=== PATIENT | male | born 1955 | race Caucasian/White ===

== ENCOUNTER 2019-03-06 06:00 | Outpatient (RCR) | payer MEDICARE, OTHER, SELFPAY | END 2019-04-05 00:01 | LOC: SPT 06:00 | PROVIDERS: Family Provider Family Medicine; Visit Provider Physician Assistant | DX: Z47.1 Aftercare following joint replacement surgery (principal); Z96.611 Presence of right artificial shoulder joint | CPT/HCPCS: 97110 ×7 ==

== ENCOUNTER 2019-04-06 06:00 | Outpatient (RCR) | payer MEDICARE, OTHER, SELFPAY | END 2019-05-06 23:59 | disposition home or self-care (01) | LOC: SPT 06:00 | PROVIDERS: Family Provider Family Medicine; PCP Family Medicine; Referring Provider Physician Assistant; Visit Provider Physician Assistant | DX: Z47.1 Aftercare following joint replacement surgery (principal); M25.511 Pain in right shoulder; M25.611 Stiffness of right shoulder, not elsewhere classified; M62.81 Muscle weakness (generalized) | CPT/HCPCS: 97110 ==

== ENCOUNTER 2019-04-08 18:07 | Emergency (ER) | payer MEDICARE, OTHER, SELFPAY ==
[2019-04-08 18:08] VITALS: BP 132/90; PULSE 63; RESP 15; TEMP 36.8; O2SAT 99; BMI 37.7
[2019-04-08 18:27] VITALS: BP 132/90; PULSE 68; RESP 20; O2SAT 99
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
--- NOTE | 2019-04-08 19:34 | PC.NURSE ---
Pt in radiology.
[2019-04-08 20:02] VITALS: O2SAT 98
[2019-04-08 20:08] VITALS: RESP 18; O2SAT 99
[2019-04-08] MEDS: morphine 4 mg/mL SDV 1 mL IV (20:08)
[2019-04-08] MEDS: ondansetron 2 mg/ML SDV 2 mL 4 MG IVP (20:08)
[2019-04-08 20:34] VITALS: BP 145/93; PULSE 84; RESP 16; TEMP 37; O2SAT 96
== END 2019-04-08 20:40 | disposition home or self-care (01) ==
PROVIDERS: Emergency Provider Emergency Medicine; Family Provider Family Medicine; PCP Family Medicine
DX: S13.4XXA Sprain of ligaments of cervical spine, initial encounter (principal); S40.012A Contusion of left shoulder, initial encounter; S60.00XA Contusion of unspecified finger without damage to nail, initial encounter; S86.112A Strain of other muscle(s) and tendon(s) of posterior muscle group at lower leg level, left leg, initial encounter; V89.2XXA Person injured in unspecified motor-vehicle accident, traffic, initial encounter; F17.210 Nicotine dependence, cigarettes, uncomplicated; E13.9 Other specified diabetes mellitus without complications
CPT/HCPCS: 70450; 72125; 73030; 73120; 73502; 73590; 96374; 99281; J2270; J2405

== ENCOUNTER 2019-04-14 14:44 | Outpatient (CLI) | payer MEDICARE, OTHER, SELFPAY ==
--- NOTE | 2019-04-14 14:53 | XR_ITS ---
WS: [id number] RIGHT SHOULDER: 3 VIEW(S) TECHNIQUE: Internal and external rotation with Y view. HISTORY: SHOULDER PAIN RIGHT COMPARISON: 04/08/2019 Prior reverse arthroplasty RIGHT shoulder. Orientation of the humeral head and humeral diaphysis pros thesis similar to prior examinations. No lucency around the hardware. Mild AC joint arthritis. 1. Mild AC joint arthritis. 2. Reverse shoulder prosthesis. The alignment does appear appropriate. No subluxation or displacemen t. XR/XR shoulder RT min 2V* [id number] IMPRESSION:
== END 2019-04-14 14:45 | disposition home or self-care (01) ==
LOC: WPI 14:52
PROVIDERS: Family Provider Family Medicine; PCP Family Medicine; Referring Provider Family Medicine; Visit Provider Family Medicine
DX: M13.811 Other specified arthritis, right shoulder (principal); M25.511 Pain in right shoulder; Z96.611 Presence of right artificial shoulder joint
CPT/HCPCS: 73030

== ENCOUNTER → 2019-05-03 11:50 | Outpatient (BNVA) | payer MEDICARE, OTHER, SELFPAY | PROVIDERS: Family Provider Family Medicine; PCP Family Medicine; Visit Provider Urology | DX: C67.9 Malignant neoplasm of bladder, unspecified (principal); R33.8 Other retention of urine | CPT/HCPCS: 81001 ==

== ENCOUNTER → 2019-09-05 09:29 | Outpatient (BNVA) | payer MEDICARE, OTHER, SELFPAY | PROVIDERS: Family Provider Family Medicine; PCP Family Medicine; Visit Provider Urology | DX: C67.9 Malignant neoplasm of bladder, unspecified (principal) | CPT/HCPCS: 81001 ==

== ENCOUNTER 2019-10-14 10:42 | Outpatient (CLI) | payer MEDICARE, OTHER, SELFPAY ==
--- NOTE | 2019-10-14 10:49 | XR_ITS ---
WS: [id number] THORACIC SPINE TECHNIQUE: 3 views of the thoracic spine CLINICAL INFORMATION: BACK PAIN, THORACIC REGION COMPARISON: None. FINDINGS: Minimal thoracic curve. Hypertrophic changes thoracic spine. Cholecystectomy clips. Surgical clips at the GE junction. Minimal compression of the endplates in the upper thoracic spine likely chronic. No acute appearing compression fractures. XR/XR thoracic spine 3V* [id number] IMPRESSION: No acute thoracic spine findings.
--- NOTE | 2019-10-14 10:49 | XR_ITS ---
WS: [id number] CERVICAL SPINE TECHNIQUE: 3 views of the cervical spine CLINICAL INFORMATION: CERVICAL RADICULOPATHY COMPARISON: None. FINDINGS: Moderate spondylitic changes. No instability on flexion-extension. Normal C1-C2 articulation. Moderate facet arthropathy in mid cervical spine. Slight retrolisthesis C3 on C4. No instability on flexion-extension. Disc space narrowing worse at C3 -4. XR/XR cervical spine min 6V [id number] IMPRESSION: 1. Moderate spondylitic changes. 2. No instability on flexion-extension.
== END 2019-10-14 10:43 | disposition home or self-care (01) ==
LOC: RADWPI 10:46
PROVIDERS: Family Provider Family Medicine; PCP Family Medicine; Visit Provider Family Medicine
DX: M54.12 Radiculopathy, cervical region (principal); M54.6 Pain in thoracic spine
CPT/HCPCS: 72052; 72072

== ENCOUNTER 2019-10-31 09:53 | Outpatient (CLI) | payer MEDICARE, OTHER, SELFPAY ==
--- NOTE | 2019-10-31 10:27 | MM_ITS ---
WS: [id number] BILATERAL DIGITAL DIAGNOSTIC MAMMOGRAM MAMMOGRAPHY WITH CAD CLINICAL INFORMATION: RT BREAST LUMP/MASS HISTORY: COMPARISON: None. TECHNIQUE: Bilateral CC, MLO, and ML views. FINDINGS: Fatty replaced breasts bilaterally. Palpable marker upper outer right breast. No mammographic normali ty. Ultrasound is pending. A few incidental axillary tail lymph nodes. ULTRASOUND BREAST RIGHT TECHNIQUE: Ultrasound right breast focused area of concern. CLINICAL INFORMATION: RT BREAST LUMP/MASS COMPARISON: None. FINDINGS: Ultrasound right breast at the 11 and 12:00 position. No evidence of underlying mass or lesion. Abby l underlying parenchymal tissue. No lesions to target for biopsy. Predominantly anechoic fluid collection just under the clavicle measuring 4.6 x 1.9 cm. This likely r epresents a postoperative seroma related to prior shoulder replacement or fluid in the subacromial bu rsa. This is in close proximity to patient's pain. Recommend clinical correlation. MM/[place] [id number] IMPRESSION: BI-RADS: 2-Benign FOLLOW UP: See Report SEE DESCRIPTION OF SUBCLAVICULAR FLUID COLLECTION ABOVE
== END 2019-10-31 09:54 | disposition home or self-care (01) ==
LOC: RADSHAW 10:00
PROVIDERS: PCP Family Medicine; Visit Provider Family Medicine
DX: N63.11 Unspecified lump in the right breast, upper outer quadrant (principal)
CPT/HCPCS: 76642; 77066

== ENCOUNTER → 2020-03-08 10:39 | Outpatient (BNVA) | payer MEDICARE, OTHER, SELFPAY | PROVIDERS: PCP Family Medicine; Visit Provider Urology | DX: C67.9 Malignant neoplasm of bladder, unspecified (principal); C67.4 Malignant neoplasm of posterior wall of bladder; Z98.890 Other specified postprocedural states | CPT/HCPCS: 81003; 88112 ==

== ENCOUNTER 2020-03-23 06:00 | Outpatient (RCR) | payer MEDICARE, OTHER, SELFPAY | END 2020-04-05 23:59 | disposition home or self-care (01) | LOC: SPT 06:00 | PROVIDERS: PCP Family Medicine; Referring Provider Orthopaedic Surgery; Visit Provider Orthopaedic Surgery | DX: M17.11 Unilateral primary osteoarthritis, right knee (principal) | CPT/HCPCS: 97032; 97110; 97161 ==

== ENCOUNTER 2020-04-06 06:00 | Outpatient (RCR) | payer MEDICARE, OTHER, SELFPAY | END 2020-05-06 23:59 | disposition home or self-care (01) | LOC: SPT 06:00 | PROVIDERS: PCP Family Medicine; Referring Provider Orthopaedic Surgery; Visit Provider Orthopaedic Surgery | DX: M17.11 Unilateral primary osteoarthritis, right knee (principal) | CPT/HCPCS: 97110 ==

== ENCOUNTER 2020-06-29 06:00 | Outpatient (RCR) | payer MEDICARE, OTHER, SELFPAY | END 2020-07-04 23:59 | disposition home or self-care (01) | LOC: SPT 06:00 | PROVIDERS: PCP Family Medicine; Referring Provider Orthopaedic Surgery; Visit Provider Orthopaedic Surgery | DX: M17.12 Unilateral primary osteoarthritis, left knee (principal) | CPT/HCPCS: 97110; 97161 ==

== ENCOUNTER 2020-07-05 06:00 | Outpatient (RCR) | payer MEDICARE, OTHER, SELFPAY | END 2020-08-03 23:59 | disposition home or self-care (01) | LOC: SPT 06:00 | PROVIDERS: PCP Family Medicine; Referring Provider Orthopaedic Surgery; Visit Provider Orthopaedic Surgery | DX: Z47.1 Aftercare following joint replacement surgery (principal); Z96.652 Presence of left artificial knee joint | CPT/HCPCS: 97110; G0283 ==

== ENCOUNTER 2020-08-04 06:00 | Outpatient (RCR) | payer MEDICARE, OTHER, SELFPAY | END 2020-09-03 23:59 | disposition home or self-care (01) | LOC: SPT 06:00 | PROVIDERS: PCP Family Medicine; Referring Provider Orthopaedic Surgery; Visit Provider Orthopaedic Surgery | DX: Z47.1 Aftercare following joint replacement surgery (principal); Z96.652 Presence of left artificial knee joint | CPT/HCPCS: 97110 ==

== ENCOUNTER → 2020-12-11 10:07 | Outpatient (BNVA) | payer MEDICARE, OTHER, SELFPAY | PROVIDERS: PCP Family Medicine; Visit Provider Urology | DX: C67.9 Malignant neoplasm of bladder, unspecified (principal) | CPT/HCPCS: 81003 ==

== ENCOUNTER → 2020-12-28 08:40 | Outpatient (BNVA) | payer MEDICARE, OTHER, SELFPAY | PROVIDERS: PCP Family Medicine; Visit Provider Nurse Practitioner Family | DX: Z20.818 Contact with and (suspected) exposure to other bacterial communicable diseases (principal) | CPT/HCPCS: 87426 ==

== ENCOUNTER → 2021-07-04 10:37 | Outpatient (BNVA) | payer MEDICARE, OTHER, SELFPAY | PROVIDERS: PCP Family Medicine; Visit Provider Urology | DX: C67.9 Malignant neoplasm of bladder, unspecified (principal) | CPT/HCPCS: 81003; 88112 ==

== ENCOUNTER 2021-10-08 11:49 | Emergency (ER) | payer MEDICARE, OTHER, SELFPAY ==
[2021-10-08 12:12] VITALS: BP 149/87; PULSE 84; RESP 18; TEMP 35.8; O2SAT 93; BMI 43.6
--- NOTE | 2021-10-08 12:21 | ED_ITS ---
HPI - Fall General: Chief Complaint: Fall Stated Complaint: Fell, hit head, hip pain, neck pain Time Seen by Provider: 10/08/21 12:21 History of Present Illness: Mr. Cortez is a 65-year-old gentleman who presents to the emergency department due to multiple falls. He reports a histor y of difficulty with equilibrium and falls not infrequently. Approximately 1 week ago he was in the bucket of a front end reproduction machine loader and fell out when it jerked landing on the cab primarily on his right back region. Since that time he has had 2 more falls each time sound more like equilibrium/balance as opposed to any other specific provoking event. Denies chest pain or shortness of breath preceding falls. He reports headache, posterior neck pain, right back pain, anterior rib inferiorly, right hip pain. Intensity symptoms is moderate. Course has persisted. No other specific changes in health, exacerbating, or alleviating factors identified. 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 Social History Smoking and tobacco status: former smoker Alcohol intake: current Alcohol intake frequency: holidays/special occasions only Adopted: No Caregiver/support person: No Lives independently: No Household members: spouse Marital status: Current occupational status: disabled History of recent travel: No Physical Exam Const: COMMON NORMALS: alert GENERAL APPEARANCE: cooperative and well developed NUTRITIONAL APPEARANCE: obese HENMT: COMMON NORMALS: normocephalic and atraumatic HEAD & SCALP: normocephalic and atraumatic OTHER: No lewis signs or raccoon eyes. No hemotympanum. No otorrhea or rhinorrhea. Jaw alignment normal. Dentition baseline. No obvious bony step-offs. No septal hematoma. No evidence of ocular entrapment. Eye: COMMON NORMALS: conjunctivae normal CONJUNCTIVA: Yes conjunctivae normal SCLERA: sclerae normal Neck/C-Spine: COMMON NORMALS: supple GENERAL: Yes trachea midline Chest: OTHER: Right rib pain tender to palpation Resp: COMMON NORMALS: clear to auscultation bilaterally EFFORT & INSPECTION: Yes able to speak in complete sentences AUSCULTATION: clear to auscultation bilaterally Cardio: COMMON NORMALS: regular rate and regular rhythm RATE: regular rate RHYTHM: regular rhythm GI: COMMON NORMALS: Soft to palpation PALPATION: Yes Soft to palpation and Yes Tenderness to palpation present (GI) (Right flank and back) PERCUSSION: normal to percussion Extremity: NARRATIVE EXTREMITY EXAM: Scattered areas of tenderness to palpation GENERAL: Yes normal exam except as noted and No edema Neuro: COMMON NORMALS: moves all extremities SENSORIUM/ORIENTATION: Yes alert and No Orientation impaired Psych: COMMON NORMALS: mental status grossly normal and Normal thought process present THOUGHT PROCESS: Normal thought process present Course Vital Signs: Vital signs: Vital Signs Temperature 96.4 F L 10/08/21 12:12 Pulse Rate 84 10/08/21 12:12 Respiratory Rate 16 10/08/21 13:18 Blood Pressure 149/87 10/08/21 12:12 Pulse Oximetry 93 10/08/21 12:12 MDM - Fall Medical Decision Making 66-year-old gentleman presenting with multiple falls including 1 fall from height with continued pain. Head to toe exam performed. No specific preceding red flag symptoms. CT head negative for acute intracranial process. CT neck negative for traumatic injury. CT chest abdomen pelvis without evidence of acute traumatic injury. Patient improved with treatment and satisfactory for outpatient management. Medical Records I reviewed the patient's medical records. Lab Data I reviewed the patient's lab results. Radiology Impressions Cervical Spine CT 10/08/21 12:40 IMPRESSION: No evidence of acute fracture or dislocation. Mild to moderate spondylitic changes. Chest/Abdomen/Pelvis CT 10/08/21 12:40 IMPRESSION: 1. No acute traumatic findings chest abdomen or pelvis. 2. Both lungs are well aerated. No acute pulmonary infiltrates. 3. No free fluid in the abdomen or pelvis. 4. Small esophageal hiatal hernia. Prior gastric bypass. 5. Cholelithiasis. 6. Visualized hips are normal in appearance. No visualized fractures. 7. Grade 1 anterolisthesis L5 on S1 with chronic spondylolysis. Head CT 10/08/21 12:40 IMPRESSION: 1. No evidence of intracranial hemorrhage or mass effect. 2. Mild small vessel changes. Moderate parenchymal volume loss. 3. Intracranial vascular calcification. 4. No acute intracranial findings. Discharge Plan Discharge Patient Disposition: Home Clinical Impression: Falls, Hip pain, Neck pain Condition: Stable Prescriptions: No Action divalproex [Depakote] 250 mg tablet,delayed release (DR/EC) 250 mg PO BID 0RF lidocaine HCl 2 % jelly 15 ml INTRA-URET ONCE Qty: 15 0RF furosemide 80 mg tablet 80 mg PO QAM 0RF multivitamin Capsule 1 cap PO QAM 0RF cholecalciferol (vitamin D3) 50 mcg (2,000 unit) capsule 50 mcg PO QDAY 0RF ascorbic acid (vitamin C) 500 mg capsule PO 0RF ferrous sulfate [FeroSul] 325 mg (65 mg iron) tablet 325 mg PO QDAY 0RF citalopram [Celexa] 40 mg tablet 20 mg PO QDAY 0RF simvastatin 20 mg tablet 20 mg PO QDAY 0RF lisinopril 40 mg tablet 40 mg PO QDAY 0RF pantoprazole [Protonix] 40 mg tablet,delayed release (DR/EC) 40 mg PO QDAY 0RF lidocaine HCl 2 % jelly 1 applic intra-urethral ONCE Qty: 20 0RF ketoconazole 2 % cream 1 applic topical BID Qty: 30 5RF Rx Instructions: To pink scaly areas on face and ears as needed ketoconazole 2 % shampoo 1 applic topical .2 x weekly Qty: 120 3RF Rx Instructions: Lather into scalp 2 times weekly. Allow to sit on scalp for 5 minutes before rinsing. Discharge Orders: Discharge ED (Routine); Ordered 10/08/21 Ordered By: Kel Roberson Referrals: Reg Hamilton MD [Primary Care Provider] - Discharge Diet: Usual diet Discharge Activity: Increase activity as tolerated Activity Restrictions/Additional Instructions: Thank you for visiting the emergency department. You were seen and evaluated for injuries related to frequent falls. The exact cause of your symptoms is unclear though as no bony abnormality or internal injury was identified on CT scan is most likely related to soft tissue injury. The treatment for this is supportive. Please ensure that you are limiting risk of falls. Please follow-up with your primary care provider. You may continue to use the previously prescribed medication as well as ov [id number] medications however please do not exceed the daily recommended dosage and please keep in mind that many namebrand medications contain the same active ingredients. Please return to the emergency department for worsening symptoms or anything else that you are concerned about and feel needs emergency department evaluation. Coding Level of Care Code ED Business Lawyer for Edgar Barajas Exam Comprehensive
--- NOTE | 2021-10-08 12:40 | CT_ITS ---
WS: [id number] CT CERVICAL TRAUMA TECHNIQUE: Noncontrast CT of the cervical spine with coronal and sagittal reformatted images. CLINICAL INFORMATION: multiple falls, posterior lower neck pain COMPARISON: 2019 DLP: 454.[address] scans at [facility] use at least one of these dose optimization techniques: automated e xposure control; mA and/or kV adjustment per patient size (includes targeted exams where dose is matc hed to clinical indication); or iterative reconstruction. FINDINGS: Straightening of the normal cervical lordosis. Mild to moderate spondylitic changes. Disc space narro wing worse at C6-C7. Normal craniocervical junction. Normal C1-C2 articulation. Dens is normal in eunice earance. Normal occipital condyles. Mild central canal stenosis C3-C4 and C4-C5. Normal C1 ring. No e vidence of acute fracture or dislocation. Normal prevertebral soft tissues. Mastoids air cells are well aerated. CT/CT cervical spin wo con* [id number] IMPRESSION: No evidence of acute fracture or dislocation. Mild to moderate spondylitic cole ges.
--- NOTE | 2021-10-08 12:40 | CT_ITS ---
WS: [id number] CT HEAD TECHNIQUE: Noncontrast CT of the head obtained from the skullbase to the vertex. CLINICAL INFORMATION: multiple falls, right sided head pain COMPARISON: 2019 DLP: 1333.[address] scans at [facility] use at least one of these dose optimization techniques: automated e xposure control; mA and/or kV adjustment per patient size (includes targeted exams where dose is matc hed to clinical indication); or iterative reconstruction. FINDINGS: No evidence of intracranial hemorrhage or mass effect. Ventricular system and basal cisterns are jacques nt. Mild small vessel changes with moderate parenchymal volume loss. No extra-axial fluid collections . Paranasal sinuses and mastoid air cells are well aerated. . LEFT globe prosthesis unchanged. CT/CT head wo con* [id number] IMPRESSION: 1. No evidence of intracranial hemorrhage or mass effect. 2. Mild small vessel changes. Moderate parenchymal volume loss. 3. Intracranial vascular calcification. 4. No acute intracranial findings.
--- NOTE | 2021-10-08 12:40 | CT_ITS ---
WS: [id number] CT CHEST, ABDOMEN, AND PELVIS TECHNIQUE: Noncontrast CT of the chest, abdomen, and pelvis with coronal and sagittal reformatted ailyn ges. CLINICAL INFORMATION: multiple falls, low back, right side, ant ribs, r hip pain COMPARISON: None. DLP: 1811.[address] scans at [facility] use at least one of these dose optimization techniques: automated e xposure control; mA and/or kV adjustment per patient size (includes targeted exams where dose is matc hed to clinical indication); or iterative reconstruction. CT CHEST: Both lungs are well aerated. No acute pulmonary infiltrates. No pneumothorax. No focal pneumonia or p leural fluid. Calcified granuloma RIGHT lower lobe. Normal caliber thoracic aorta. Mild aortic calcification. Coronary calcification. No mediastinal or h ilar lymphadenopathy. Calcified RIGHT hilar lymph nodes. No axillary lymphadenopathy. Postoperative c hanges RIGHT TSA. CT ABDOMEN AND PELVIS: Noncontrast liver is normal. Cholelithiasis. Prior postoperative changes gastric bypass. Small esopha geal hernia. Fatty atrophy of the pancreas. Adrenal glands are normal. No hydronephrosis in either ki dney. Normal caliber abdominal aorta. Mild aortic calcification. No free fluid in the abdomen or pelvis. No rmal sigmoid colon. No evidence of small or large bowel obstruction. No free fluid in the abdomen or pelvis. Tiny fat-containing umbilical hernia. Visualized hips are normal in appearance. No visualized fractur es. Grade 1 anterolisthesis L5 on S1 with chronic spondylolysis. CT/[place] [id number] IMPRESSION: 1. No acute traumatic findings chest abdomen or pelvis. 2. Both lungs are well aerated. No acute pulmonary infiltrates. 3. No free fluid in the abdomen or pelvis. 4. Small esophageal hiatal hernia. Prior gastric bypass. 5. Cholelithiasis. 6. Visualized hips are normal in appearance. No visualized fractures. 7. Grade 1 anterolisthesis L5 on S1 with chronic spondylolysis.
[2021-10-08 13:18] VITALS: RESP 16
[2021-10-08] MEDS: morphine 4 mg/mL SDV 1 mL IM (13:18)
== END 2021-10-08 16:15 | disposition home or self-care (01) ==
PROVIDERS: Emergency Provider Emergency Medicine; PCP Family Medicine
DX: M25.551 Pain in right hip (principal); M54.2 Cervicalgia; R29.6 Repeated falls; Z85.51 Personal history of malignant neoplasm of bladder; E13.9 Other specified diabetes mellitus without complications; Z87.891 Personal history of nicotine dependence
CPT/HCPCS: 70450; 71250; 72125; 74176; 96372; 99284; J2270

== ENCOUNTER → 2021-10-10 13:12 | Outpatient (BNVA) | payer MEDICARE, OTHER, SELFPAY | PROVIDERS: PCP Family Medicine; Visit Provider Urology | DX: C67.9 Malignant neoplasm of bladder, unspecified (principal) | CPT/HCPCS: 52000; 81003 ==

== ENCOUNTER 2021-12-20 11:35 | Outpatient (RCR) | payer MEDICARE, OTHER, SELFPAY | END 2021-12-26 23:59 | disposition home or self-care (01) | LOC: SPT 11:35 | PROVIDERS: PCP Family Medicine; Visit Provider Family Medicine | DX: R42 Dizziness and giddiness (principal) | CPT/HCPCS: 95992; 97162 ==

== ENCOUNTER → 2022-02-20 11:24 | Outpatient (BNVA) | payer MEDICARE, SELFPAY | PROVIDERS: PCP Family Medicine; Visit Provider Family Medicine | DX: C67.9 Malignant neoplasm of bladder, unspecified (principal); E53.8 Deficiency of other specified B group vitamins; M25.50 Pain in unspecified joint; E03.9 Hypothyroidism, unspecified; Z51.81 Encounter for therapeutic drug level monitoring; E11.9 Type 2 diabetes mellitus without complications; Z13.220 Encounter for screening for lipoid disorders | CPT/HCPCS: 52000; 80053; 80061; 82607; 83036; 84443; 85025; 86141; 86618; 86666; 86757 ==

== ENCOUNTER 2022-04-11 10:10 | Outpatient (RCR) | payer MEDICARE, SELFPAY | END 2022-05-01 16:31 | disposition home or self-care (01) | LOC: SPT 10:10 | PROVIDERS: PCP Family Medicine; Visit Provider Clinical Nurse Specialist Adult Health | DX: R42 Dizziness and giddiness (principal) | CPT/HCPCS: 97161; 97530 ==

== ENCOUNTER → 2022-04-29 11:34 | Outpatient (BNVA) | payer MEDICARE, SELFPAY | PROVIDERS: PCP Family Medicine; Visit Provider Clinical Nurse Specialist Adult Health | DX: R05.9 Cough, unspecified (principal); J32.9 Chronic sinusitis, unspecified; R05.2 Subacute cough; B96.89 Other specified bacterial agents as the cause of diseases classified elsewhere | CPT/HCPCS: 87400 ==

== ENCOUNTER → 2022-05-21 09:49 | Outpatient (BNVA) | payer MEDICARE, OTHER, SELFPAY | PROVIDERS: PCP Family Medicine; Visit Provider Podiatrist Foot & Ankle Surgery | DX: E11.8 Type 2 diabetes mellitus with unspecified complications (principal); S90.422A Blister (nonthermal), left great toe, initial encounter; X58.XXXA Exposure to other specified factors, initial encounter; G62.9 Polyneuropathy, unspecified; I73.9 Peripheral vascular disease, unspecified; B35.1 Tinea unguium; L60.3 Nail dystrophy; L84 Corns and callosities; E11.621 Type 2 diabetes mellitus with foot ulcer; L97.521 Non-pressure chronic ulcer of other part of left foot limited to breakdown of skin | CPT/HCPCS: 11721; 97597; 99204 ==

== ENCOUNTER → 2022-05-27 13:38 | Outpatient (BNVA) | payer MEDICARE, SELFPAY | PROVIDERS: PCP Family Medicine; Visit Provider Podiatrist Foot & Ankle Surgery | DX: I73.9 Peripheral vascular disease, unspecified (principal); G62.9 Polyneuropathy, unspecified; B35.1 Tinea unguium; L60.3 Nail dystrophy; L84 Corns and callosities | CPT/HCPCS: 99213 ==

== ENCOUNTER → 2022-06-06 11:23 | Outpatient (BNVA) | payer MEDICARE, SELFPAY | PROVIDERS: PCP Family Medicine; Visit Provider Family Medicine | DX: Z51.81 Encounter for therapeutic drug level monitoring (principal); E13.9 Other specified diabetes mellitus without complications; E11.9 Type 2 diabetes mellitus without complications; I73.9 Peripheral vascular disease, unspecified; E55.9 Vitamin D deficiency, unspecified; Z13.220 Encounter for screening for lipoid disorders; G62.9 Polyneuropathy, unspecified | CPT/HCPCS: 80053; 80061; 82306; 83036; 85025 ==

== ENCOUNTER → 2022-07-28 13:28 | Outpatient (BNVA) | payer MEDICARE, SELFPAY | PROVIDERS: PCP Family Medicine; Visit Provider Podiatrist Foot & Ankle Surgery | DX: E11.8 Type 2 diabetes mellitus with unspecified complications (principal); I73.9 Peripheral vascular disease, unspecified; G62.9 Polyneuropathy, unspecified; B35.1 Tinea unguium | CPT/HCPCS: 11721 ==

== ENCOUNTER → 2022-08-19 13:04 | Outpatient (BNVA) | payer MEDICARE, OTHER, SELFPAY | PROVIDERS: PCP Family Medicine; Visit Provider Urology | DX: C67.9 Malignant neoplasm of bladder, unspecified (principal) | CPT/HCPCS: 81003 ==

== ENCOUNTER → 2022-10-20 11:24 | Outpatient (BNVA) | payer MEDICARE, SELFPAY | PROVIDERS: PCP Family Medicine; Visit Provider Podiatrist Foot & Ankle Surgery | DX: I73.9 Peripheral vascular disease, unspecified (principal); B35.1 Tinea unguium; G62.9 Polyneuropathy, unspecified | CPT/HCPCS: 11721 ==

== ENCOUNTER → 2022-12-01 10:58 | Outpatient (BNVA) | payer MEDICARE, OTHER, SELFPAY | PROVIDERS: PCP Family Medicine; Visit Provider Nurse Practitioner Family | DX: L21.8 Other seborrheic dermatitis (principal); L82.1 Other seborrheic keratosis; L82.0 Inflamed seborrheic keratosis; L57.0 Actinic keratosis; L81.4 Other melanin hyperpigmentation; L57.8 Other skin changes due to chronic exposure to nonionizing radiation; D69.2 Other nonthrombocytopenic purpura | CPT/HCPCS: 17000; 17003; 17110; 99214 ==

== ENCOUNTER → 2022-12-29 15:07 | Outpatient (BNVA) | payer MEDICARE, OTHER, SELFPAY | PROVIDERS: PCP Family Medicine; Visit Provider Podiatrist Foot & Ankle Surgery | DX: B35.1 Tinea unguium (principal); G62.9 Polyneuropathy, unspecified; I73.9 Peripheral vascular disease, unspecified | CPT/HCPCS: 11721 ==

== ENCOUNTER → 2023-03-11 10:49 | Outpatient (BNVA) | payer MEDICARE, OTHER, SELFPAY | PROVIDERS: PCP Family Medicine; Visit Provider Family Medicine | DX: E53.8 Deficiency of other specified B group vitamins (principal); R53.81 Other malaise; R53.83 Other fatigue; E11.9 Type 2 diabetes mellitus without complications; Z51.81 Encounter for therapeutic drug level monitoring | CPT/HCPCS: 80053; 82607; 83036; 84439; 84443; 85025 ==

== ENCOUNTER → 2023-03-13 09:09 | Outpatient (BNVA) | payer MEDICARE, OTHER, SELFPAY | PROVIDERS: PCP Family Medicine; Visit Provider Podiatrist Foot & Ankle Surgery | DX: B35.1 Tinea unguium (principal); G62.9 Polyneuropathy, unspecified; I73.9 Peripheral vascular disease, unspecified | CPT/HCPCS: 11721 ==

== ENCOUNTER → 2023-05-25 08:21 | Outpatient (BNVA) | payer MEDICARE, OTHER, SELFPAY | PROVIDERS: PCP Family Medicine; Visit Provider Podiatrist Foot & Ankle Surgery | DX: B35.1 Tinea unguium (principal); G62.9 Polyneuropathy, unspecified; I73.9 Peripheral vascular disease, unspecified; E11.42 Type 2 diabetes mellitus with diabetic polyneuropathy; Z79.84 Long term (current) use of oral hypoglycemic drugs | CPT/HCPCS: 11721 ==

== ENCOUNTER → 2023-08-10 11:25 | Outpatient (BNVA) | payer MEDICARE, OTHER, SELFPAY | PROVIDERS: PCP Family Medicine; Visit Provider Podiatrist Foot & Ankle Surgery | DX: B35.1 Tinea unguium (principal); G62.9 Polyneuropathy, unspecified; I73.9 Peripheral vascular disease, unspecified; E11.42 Type 2 diabetes mellitus with diabetic polyneuropathy; Z79.84 Long term (current) use of oral hypoglycemic drugs | CPT/HCPCS: 11721 ==

== ENCOUNTER → 2023-08-13 09:41 | Outpatient (BNVA) | payer MEDICARE, OTHER, SELFPAY | PROVIDERS: PCP Family Medicine; Visit Provider Family Medicine | DX: Z51.81 Encounter for therapeutic drug level monitoring (principal); E53.8 Deficiency of other specified B group vitamins; R53.81 Other malaise; R53.83 Other fatigue; E11.9 Type 2 diabetes mellitus without complications; Z13.220 Encounter for screening for lipoid disorders; E55.9 Vitamin D deficiency, unspecified; R35.0 Frequency of micturition | CPT/HCPCS: 80053; 80061; 82306; 82607; 83036; 84153; 84439; 84443; 85025 ==

== ENCOUNTER 2023-09-09 11:23 | Outpatient (CLI) | payer MEDICARE, OTHER, SELFPAY ==
--- NOTE | 2023-09-09 11:45 | MR_ITS ---
WS: [id number] MRI HEAD WITHOUT CONTRAST TECHNIQUE: Sagittal T1, T2 axial, T2 axial FLAIR, axial and coronal T1 images, axial susceptibility w eighted imaging, axial diffusion weighted images, and coronal T2 images were obtained. CLINICAL INFORMATION: Dizziness COMPARISON: CT 10/08/2021 FINDINGS: No evidence of restricted diffusion to suggest acute ischemia. Moderate to advanced small vessel cole ges with moderate parenchymal volume loss. Normal posterior fossa. Normal vascular flow voids at the skull base. No extra-axial fluid collections. No evidence of mass or mass effect. Paranasal sinuses a re well aerated. Mucosal thickening in the LEFT mastoid tip. Normal posterior nasopharynx. LEFT globe prosthesis. Normal optic chiasm and pituitary infundibulum. Mild symmetric atrophy temporal lobes and hippocampal formations. Punctate focus of hemosiderin in the LEFT parietal lobe. No other foci of hemosiderin on susceptibility weighted imaging. MR/MR head wo con* [id number] IMPRESSION: 1. No evidence of restricted diffusion to suggest acute ischemia. 2. Moderate to advanced small vessel changes with moderate parenchymal volume loss worse in the frontal lobes. 3. Tiny punctate focus of chronic hemosiderin in the LEFT parietal lobe. 4. No extra-axial fluid collections. 5. No other acute findings.
== END 2023-09-09 11:24 | disposition home or self-care (01) ==
LOC: RAD 11:23
PROVIDERS: PCP Family Medicine; Visit Provider Family Medicine
DX: R42 Dizziness and giddiness (principal)
CPT/HCPCS: 70551

== ENCOUNTER 2023-09-24 09:38 | Emergency (ER) | payer MEDICARE, OTHER, SELFPAY ==
[2023-09-24 09:48] VITALS: BP 146/83; PULSE 70; RESP 14; TEMP 36.6; O2SAT 96; BMI 39.8
--- NOTE | 2023-09-24 09:56 | ECG_ITS ---
[facility] Test Date: 2023-09-24 Pat Name: Syed Jaimes Department: Room: Gender: Male Provider Network Manager: : 1955 Requested By: Mitchel Interiano Order Number: [id number] Bobbi MD: Freddy Orantes M.D. Measurements Intervals [place] Rate: 72 P: 0 VT: 0 QRS: -40 QRSD: 95 T: 1 QT: 416 QTc: 456 Interpretive Statements ATRIAL FIBRILLATION LOW QRS VOLTAGE IN PRECORDIAL LEADS [QRS DEFLECTION < 1.0 mV IN CHEST LEADS] PATTERN CONSISTENT WITH PULMONARY DISEASE INFERIOR MYOCARDIAL INFARCTION , PROBABLY OLD [40+ ms Q WAVE AND/OR ST/T ABNORMALITY IN II/aVF] No previous ECG available for comparison Electronically Signed On 09-25-2023 13:36:53 CDT by Freddy Orantes M.D. [email or web address]
--- NOTE | 2023-09-24 10:20 | W.ED.ARRPALP ---
HPI - Arrhythmia/Palpitations General: Chief Complaint: Arrhythmia/Palpitations Stated Complaint: sent by surgery center, possible afib Time Seen by Provider: 09/24/23 09:50 Source: patient Mode of arrival: ambulatory Limitations: no limitations History of Present Illness: 67-year-old male who is having a upper GI scope done today states that they noticed that he is in A-fib and sent him here after the scope he has no complaints he denies feeling any palpitations he denies any new worsening improving factors. No history of A-fib in the past. Associated symptoms: Deny nausea or vomiting Review of Systems Const: Denies: fever(s), chills, body aches or change in appetite ENMT: Denies: throat pain or dental pain Card: Reports: irregular heart rhythm; Denies: chest pain Resp: Denies: dyspnea GI: Denies: abdominal pain, nausea, vomiting or diarrhea Musc: Denies: neck pain or back pain Skin/Breast: Denies: rash Neuro: Denies: headache(s) PFSH ED PFSH: Medical History Malignant neoplasm of posterior wall of urinary bladder Bladder cancer Diabetes 1.5, managed as type 2 Surgical History H/O eye surgery left History of shoulder surgery right Hx of gastric bypass GASTRIC SLEEVE History of appendectomy History of knee surgery BILATERAL History of transurethral destruction of bladder lesion H/O vasectomy Family History Father , AT AGE 30 CANCER Cancer Mother , AT AGE 56 LOTS OF HEALTH ISSUES No problems noted. Social History Smoking and tobacco/nicotine status: former use of tobacco/nicotine Alcohol intake: current Alcohol intake frequency: holidays/special occasions only Substance/Drug Use: never Adopted: No Caregiver/support person: No Lives independently: No Household members: spouse Marital status: Current occupational status: disabled Physical Exam Const: COMMON NORMALS: no acute distress, patient oriented x3 and healthy appearing HENMT: COMMON NORMALS: normocephalic and atraumatic HEAD & SCALP: normocephalic and atraumatic Eye: COMMON NORMALS: Equal, round and reactive pupils present and EOMs intact bilaterally PUPIL: Yes Equal, round and reactive pupils present Neck/C-Spine: COMMON NORMALS: full ROM and supple Chest: COMMONS NORMALS: normal inspection of the chest Resp: COMMON NORMALS: normal respiratory effort Cardio: COMMON NORMALS: regular rate and No murmurs present (Cardio) RATE: regular rate RHYTHM: abnormal rhythm irregularly irregular GI: COMMON NORMALS: Normal to inspection, nondistended, normoactive bowel sounds present, Soft to palpation, non-tender and no masses PALPATION: Yes Soft to palpation Extremity: COMMON NORMALS: normal to inspection and full ROM Neuro: COMMON NORMALS: patient oriented x3, moves all extremities and no focal motor deficits Psych: COMMON NORMALS: mental status grossly normal, Normal thought process present and cooperative THOUGHT PROCESS: Normal thought process present Skin: COMMON NORMALS: no rashes or lesions noted and no wounds GENERAL SKIN EXAM: no rashes or lesions noted Course Vital Signs: Vital signs: Vital Signs Temperature 97.9 F 09/24/23 09:48 Pulse Rate 67 09/24/23 11:49 Respiratory Rate 14 09/24/23 09:48 Blood Pressure 158/107 09/24/23 11:49 Pulse Oximetry 96 09/24/23 11:49 Oxygen Delivery Me thod Room Air 09/24/23 11:49 MDM - Arrhythmia/Palpitations Medical Decision Making Patient presents here with new onset A-fib had cardiology Dr. Chisholm review EKG patient is asymptomatic here rates controlled discussed plan with him we will start patient on Eliquis and have him follow-up with cardiology inform patient if he has any palpitations or pain he is return he understands agrees to plan Medical Records I reviewed the patient's medical records. Lab Data I reviewed the patient's lab results. 09/24/23 11:08 09/24/23 11:08 Laboratory Results WBC 4.49 10^3/uL (3.29-11.43) 09/24/23 11:08 RBC 4.73 10^6/uL (3.85-5.65) 09/24/23 11:08 Hgb 11.10 g/dL (11.27-16.99) L 09/24/23 11:08 Hct 37.5 % (37-53) 09/24/23 11:08 MCV 79.3 fl (82-101) L 09/24/23 11:08 MCH 23.5 pg (27-33) L 09/24/23 11:08 MCHC 29.6 g/dL (30-55) L 09/24/23 11:08 RDW 16.6 % (12.1-15.1) H 09/24/23 11:08 Plt Count 157 10^3/cmm (157-399) 09/24/23 11:08 MPV 10.6 fL (7.4-10.4) H 09/24/23 11:08 Neut % (Auto) 65.5 % 09/24/23 11:08 Lymph % (Auto) 23.8 % 09/24/23 11:08 [place] % (Auto) 8.2 % 09/24/23 11:08 Eos % (Auto) 1.8 % 09/24/23 11:08 Baso % (Auto) 0.7 % 09/24/23 11:08 Neut # (Auto) 2.94 10^3/uL (1.8-7.7) 09/24/23 11:08 Lymph # (Auto) 1.1 10^3/uL (0.8-4.8) 09/24/23 11:08 [place] # (Auto) 0.4 10^3/uL (0.2-0.9) 09/24/23 11:08 Eos # (Auto) 0.1 10^3/uL (0.0-0.8) 09/24/23 11:08 Baso # (Auto) 0.0 10^3/uL (0.0-0.1) 09/24/23 11:08 Nucleated RBC % (auto) 0 % 09/24/23 11:08 Nucleated RBCs # 0.0 /100WBC 09/24/23 11:08 Sodium 143 mmol/L (136-145) 09/24/23 11:08 Potassium 4.5 mmol/L (3.5-5.1) 09/24/23 11:08 Chloride 105 mmol/L (98-107) 09/24/23 11:08 Carbon Dioxide 29 mmol/L (22-29) 09/24/23 11:08 Anion Gap 13.5 (5-19) 09/24/23 11:08 BUN 17 mg/dL (8-23) 09/24/23 11:08 Creatinine 0.9 mg/dL (0.7-1.2) 09/24/23 11:08 GFR Calculation 83.7 mL/min (90-130) L 09/24/23 11:08 Glucose 102 mg/dL (65-115) 09/24/23 11:08 Calculated Osmolality 298 mOsm/kg (285-295) H 09/24/23 11:08 Calcium 8.9 mg/dL (8.5-10.5) 09/24/23 11:08 All radiology interpretation(s) finalized by discharge EKG Data EKG 1: I personally reviewed and interpreted this EKG as follows: EKG interpretation date: 09/24/23 EKG interpretation time: 09:43 Interpretation: afib hr [address] elevation qrs 95 qtc 440 Discharge Plan Discharge Patient Disposition: Home Clinical Impression: Atrial fibrillation Condition: Stable Prescriptions: New Eliquis 5 mg tablet 5 mg PO BID Qty: 60 0RF No Action Ozempic 0.25 mg or 0.5 mg (2 mg/3 mL) pen injector 0.25 mg SUBCUT Q7D Qty: 3 1RF (DME) Diabetic Shoes with 3 inserts See Rx Instructions .Route .MEDSUPPLY Qty: 1 0RF Rx Instructions: As directed HOME furosemide 80 mg tablet 80 mg PO QAM Qty: 30 6RF paroxetine HCl 40 mg tablet 40 mg PO DAILY Qty: 90 3RF divalproex [Depakote] 250 mg tablet,delayed release (DR/EC) 250 mg PO BID Qty: 180 2RF gabapentin 100 mg capsule 100 mg PO TID Qty: 90 3RF simvastatin 10 mg tablet 10 mg PO QPM pantoprazole 40 mg tablet,delayed release (DR/EC) 40 mg PO QAM lisinopril 40 mg tablet 40 mg PO DAILY Bariatric Multivitamins 45 mg iron- 800 mcg-120 mcg Capsule 1 cap PO DAILY Discharge Orders: Discharge ED (Routine); Ordered 09/24/23 Ordered By: Mitchel Interiano Referrals: Lavell Tuttle MD [Physician] - 4-7 days Reg Hamilton MD [Primary Care Provider] - Discharge Diet: Advance as tolerated Discharge Activity: Resume usual activity Patient Instructions: Opioid Safety, Pain Management Coding Level of Care Code ED Director Of Assisted Living for Edgar Barajas
[2023-09-24 11:11] VITALS: BP 116/75; PULSE 65; O2SAT 96
[2023-09-24 11:16] LABS: Basophils % 0.7 %; Eosinophils # 0.1 10^3/uL (0.0-0.8); Eosinophils % 1.8 %; Hematocrit 37.5 % (37-53); Lymphocytes # 1.1 10^3/uL (0.8-4.8); Lymphocytes % 23.8 %; Mean Corpuscular HGB Conc 29.6 g/dL (30-55); Mean Corpuscular Hemoglobin 23.5 pg (27-33); Mean Corpuscular Volume 79.3 fl (82-101); Mean Platelet Volume 10.6 fL (7.4-10.4); Monocytes # 0.4 10^3/uL (0.2-0.9); Monocytes % 8.2 %; Neutrophils # 2.94 10^3/uL (1.8-7.7); Neutrophils % 65.5 %; Nucleated Red Blood Cells % 0 %; Platelet Count 157 10^3/cmm (157-399); Red Blood Count 4.73 10^6/uL (3.85-5.65); Red Cell Distribution Width 16.6 % (12.1-15.1); White Blood Count 4.49 10^3/uL (3.29-11.43)
[2023-09-24 11:33] LABS: Anion Gap 13.5 (5-19); Blood Urea Nitrogen 17 mg/dL (8-23); Calcium 8.9 mg/dL (8.5-10.5); Carbon Dioxide 29 mmol/L (22-29); Chloride 105 mmol/L (98-107); Glomerular Filtration Rate 83.7 mL/min (90-130); Glucose 102 mg/dL (65-115); Osmolality Calculated 298 mOsm/kg (285-295); Potassium 4.5 mmol/L (3.5-5.1); Sodium 143 mmol/L (136-145)
[2023-09-24 11:49] VITALS: BP 158/107; PULSE 67; O2SAT 96
[2023-09-24 12:31] VITALS: BP 144/78; PULSE 64; O2SAT 98
--- NOTE | 2023-09-24 16:32 | DCPLANNER ---
messaged heart care for er f/u
== END 2023-09-24 12:30 | disposition home or self-care (01) ==
PROVIDERS: Emergency Provider Emergency Medicine; PCP Family Medicine
DX: I48.91 Unspecified atrial fibrillation (principal); Z79.85 Long-term (current) use of injectable non-insulin antidiabetic drugs; E13.9 Other specified diabetes mellitus without complications; Z85.51 Personal history of malignant neoplasm of bladder; Z87.891 Personal history of nicotine dependence
CPT/HCPCS: 80048; 85025; 93005; 99284

== ENCOUNTER → 2024-02-16 13:16 | Outpatient (BNVA) | payer MEDICARE, OTHER, SELFPAY | PROVIDERS: PCP Family Medicine; Visit Provider Internal Medicine Cardiovascular Disease | DX: S20.319A Abrasion of unspecified front wall of thorax, initial encounter (principal); X58.XXXA Exposure to other specified factors, initial encounter | CPT/HCPCS: 93005 ==

== ENCOUNTER 2024-02-17 06:00 | Outpatient (CLI) | payer MEDICARE, OTHER, SELFPAY | END 2024-02-17 06:01 | disposition home or self-care (01) | LOC: RAD 03-03 11:00 | PROVIDERS: PCP Family Medicine; Visit Provider Family Medicine | DX: Z51.81 Encounter for therapeutic drug level monitoring (principal); R22.1 Localized swelling, mass and lump, neck; Z13.6 Encounter for screening for cardiovascular disorders; Z13.220 Encounter for screening for lipoid disorders; E55.9 Vitamin D deficiency, unspecified | CPT/HCPCS: 80053; 80061; 82306; 82607; 83036; 85025 ==

== ENCOUNTER → 2024-02-24 09:45 | Outpatient (BNVA) | payer MEDICARE, OTHER, SELFPAY | PROVIDERS: PCP Family Medicine; Visit Provider Podiatrist Foot & Ankle Surgery | DX: B35.1 Tinea unguium (principal); G62.9 Polyneuropathy, unspecified; I73.9 Peripheral vascular disease, unspecified | CPT/HCPCS: 11721 ==

== ENCOUNTER 2024-03-07 10:39 | Outpatient (CLI) | payer MEDICARE, OTHER, SELFPAY ==
--- NOTE | 2024-03-07 10:45 | US_ITS ---
WS: [id number] INDICATION: LEFT posterior lump TECHNIQUE: Ultrasound area of concern posterior LEFT ear FINDINGS: Normal soft tissue posterior to the left ear. No cystic or solid lesions. No suspicious fin dings in the area of concern. US/US soft tissue head neck [id number] IMPRESSION: No suspicious findings in the area of concern.
== END 2024-03-07 10:40 | disposition home or self-care (01) ==
LOC: RAD 10:40
PROVIDERS: PCP Family Medicine; Visit Provider Family Medicine
DX: R22.1 Localized swelling, mass and lump, neck (principal)
CPT/HCPCS: 76536; 80053; 80061; 82306; 82607; 83036; 85025

== ENCOUNTER 2024-03-14 07:22 | Outpatient (CLI) | payer MEDICARE, OTHER, SELFPAY ==
--- NOTE | 2024-03-14 | ECG_ITS ---
[email or web address] Test Date: 2024-03-14 Pat Name: Syed Jaimes Department: Room: Gender: Male Privacy Compliance Manager: : 1955 Requested By: Lavell Tuttle Order Number: [id number] Bobbi MD: Jesus Gerard M.D. Interpretive Statements LEXISCAN SESTAMIBI STRESS TEST Procedure: At the baseline, the blood pressure was 180/81 mmHg with a heart rate of 75 bpm. The electrocardiogram showed atrial fibrillation with normal ST and T's. The Lexiscan was infused over a period of 20 seconds. A total of 0.4 mg of Lexiscan was infused. The stress phase was continued for a total of 5 minutes. Heart rate was at the end of stress phase was 77 bpm and a blood pressure of 135/71 mmHg. The EKG at the peak infusion revealed atrial fibrillation with no significant ST-T wave changes. Sestamibi was injected 20 seconds after the Lexiscan infusion. Blood pressure at the end of recovery phase was 148/69 mmHg with a heart rate of 76 bpm. Conclusion: 1. Normal EKG response to Lexiscan infusion 2. No Lexiscan induced chest pain or cardiac arrhythmia. 3. Normal blood pressure and heart rate response. 4. Sestamibi/sestamibi perfusion scan pending; see separate report. Electronically Signed On 03-21-2024 08:27:31 NET LEAD DEVELOPER by Jesus Gerard M.D. [email or web address]
--- NOTE | 2024-03-14 07:39 | NMCV_ITS ---
NM celso perf SPECT r/s* [id number] Nuzhatjennifer Syed Age: 68 Gender: M : 1955 Exam Date: 03/14/2024 08:44 Ordering Phys: Lavell Tuttle MD ([email or web address]) Technologist: ARIE Estrella Exam Location: [facility] Indications: cp STRESS TEST Please see separate stress test report in [facility] for full findings IMAGE PROTOCOL Rest/Stress 1 Lexiscan Day Radiopharmaceutical Dose (mCi) Administration Site Administered by Rest: Tc-99m 11 IV ARIE Estrella Stress:Tc-99m 33 IV ARIE José Rest: 14-Mar-2024 60 Discovery 630 Stress: 14-Mar-2024 30 Discovery 630 0.4mg Lexiscan. Images obtained in supine and prone position. SPECT RESULTS Technical Quality: Good Raw Data Analysis: Soft tissue attenuation Image Corrections: No attenuation or motion correction applied Summed Stress Score: 11 Summed Rest Score: 12 Summed Difference Score: 1 PERFUSION FINDINGS Large area of fixed perfusion defect noted in basal to distal inferior and mid to distal anterior wall suggestive of old myocardial infarction versus scarring. No significant ischemia noted FUNCTIONAL RESULTS (calculated via Gated SPECT) Stress Image LV EF (%): 69 Stress EDV (mL):117 TID: 1.02 Stress ESV (mL):36 FUNCTIONAL FINDINGS: There is normal left ventricular systolic function. There appeared to be inferior wall akinesis IMPRESSIONS Large area of old myocardial infarction versus scarring noted in basal distal inferior and mid to distal anterior wall without otto-infarct ischemia. This study is negative for ischemia. EKG segment will be documented separately. Lavell Tuttle MD (Electronically Signed) Final Date: 14 March 2024 10:24 S
[2024-03-14 07:40] VITALS: BMI 47.9
[2024-03-14] MEDS: regadenoson 0.4 Mg/5 ml Syringe IVP (09:09)
[2024-03-14 09:20] VITALS: BP 135/71; PULSE 72
== END 2024-03-14 07:23 | disposition home or self-care (01) ==
LOC: CDL 07:24
PROVIDERS: PCP Family Medicine; Visit Provider Internal Medicine Cardiovascular Disease
DX: R07.9 Chest pain, unspecified (principal); R06.02 Shortness of breath
CPT/HCPCS: 36415; 78452; 93017; 96374; A9500; J2785

== ENCOUNTER 2024-03-14 11:26 | Outpatient (CLI) | payer MEDICARE, OTHER, SELFPAY ==
--- NOTE | 2024-03-14 12:00 | USCV_ITS ---
Syed Jaimes Age: 68 Gender: M : 1955 Exam Date: 03/14/2024 11:59 Ordering Phys: Lavell Tuttle MD ([email or web address]) Technologist: CT Exam Location: [facility] [place] Indication: cp/sob BP: 147 / 60 HR: 77 Rhythm: Atrial fibrillation Technical Quality: Adequate MEASUREMENTS (Male / Female) Normal Values 2D ECHO LVOT Diameter 2.1 cm LV Ejection Fraction MOD 4C 57.8 % LV Ejection Fraction MOD 2C 59.3 % LV Ejection Fraction 2C AL 59.8 % LA Diameter 5.3 cm RA Systolic Volume 4C AL 96.7 ml RA Systolic Volume 4C MOD 93.7 ml LA Sys Volume AL 116.0 cm cubed LA Sys Volume Index AL 37.9 cm cubed/m squared Aorta at Sinotubular Diameter 2.0 cm M-MODE LA Ao Ratio MM 1.9 AV Cusp Separation MM 1.8 cm DOPPLER AV Peak Velocity 140.0 cm/s LVOT Peak Velocity 120.0 cm/s AV Area Cont Eq vti 2.9 cm squared AV Area Cont Eq pk 2.9 cm squared MV Peak Velocity 149.0 cm/s MV Area PHT 5.1 cm squared Mitral E to A Ratio 113.0 TV Peak Velocity 154.0 cm/s TR Peak Velocity 165.0 cm/s TR Peak Gradient 10.9 mmHg TV Peak E Velocity 82.0 cm/s PV Peak Velocity 112.5 cm/s FINDINGS Left Ventricle Normal left ventricular size, systolic function and wall thickness, with no regional wall motion abnormalities. Left ventricular ejection fraction is estimated at 60 %. Grade I/IV diastolic dysfunction (abnormal relaxation filling pattern), normal to mildly elevated filling pressures. Right Ventricle The right ventricle is normal in size and function. Right Atrium The right atrium is normal in size. Left Atrium Moderately increased left atrial size. Mitral Valve Moderately thickened mitral valve. Mild mitral annular calcification. No mitral valve stenosis. Trace mitral valve regurgitation. Aortic Valve Moderate aortic valve calcification. Mild aortic valve stenosis, mean gradient 4.4 mmHg, YRIS 2.9 cm squared.trace aortic valve regurgitation. Tricuspid Valve Structurally normal tricuspid valve without significant stenosis or regurgitation. Pulmonary artery systolic pressure is normal. Pulmonic Valve Structurally normal pulmonic valve without significant stenosis. There is no pulmonic regurgitation. Pericardium Normal pericardium without effusion. Aorta Normal ascending aorta dimension. IVC The inferior vena cava appears normal. CONCLUSIONS Normal left ventricular size, systolic function and wall thickness, with no regional wall motion abnormalities. Left ventricular ejection fraction is estimated at 60 %. Grade I/IV diastolic dysfunction (abnormal relaxation filling pattern), normal to mildly elevated filling pressures. Moderate aortic valve calcification. Mild aortic valve stenosis, mean gradient 4.4 mmHg, YRIS 2.9 cm squared.trace aortic valve regurgitation. There is no pericardial effusion. Right atrial pressure is around 5 mm of mercury. Lavell Tuttle MD (Electronically Signed) Final Date: 21 March 2024 19:53 S
== END 2024-03-14 11:27 | disposition home or self-care (01) ==
LOC: RAD 11:26
PROVIDERS: PCP Family Medicine; Visit Provider Internal Medicine Cardiovascular Disease
DX: I50.30 Unspecified diastolic (congestive) heart failure (principal); I51.7 Cardiomegaly; I34.89 Other nonrheumatic mitral valve disorders; I70.0 Atherosclerosis of aorta; R06.02 Shortness of breath; R07.9 Chest pain, unspecified
CPT/HCPCS: 93306

== ENCOUNTER → 2024-04-27 11:12 | Outpatient (BNVA) | payer MEDICARE, OTHER, SELFPAY | PROVIDERS: PCP Family Medicine; Visit Provider Podiatrist Foot & Ankle Surgery | DX: B35.1 Tinea unguium (principal); G62.9 Polyneuropathy, unspecified; I73.9 Peripheral vascular disease, unspecified; E13.9 Other specified diabetes mellitus without complications | CPT/HCPCS: 11721; 99213 ==

== ENCOUNTER → 2024-06-09 12:03 | Outpatient (BNVA) | payer MEDICARE, OTHER, SELFPAY | PROVIDERS: PCP Family Medicine; Visit Provider Family Medicine | DX: K91.89 Other postprocedural complications and disorders of digestive system (principal); Y83.2 Surgical operation with anastomosis, bypass or graft as the cause of abnormal reaction of the patient, or of later complication, without mention of misadventure at the time of the procedure; R53.81 Other malaise; R53.83 Other fatigue; G62.9 Polyneuropathy, unspecified; D64.9 Anemia, unspecified; E03.9 Hypothyroidism, unspecified; E11.9 Type 2 diabetes mellitus without complications; E55.9 Vitamin D deficiency, unspecified; E53.8 Deficiency of other specified B group vitamins; Z51.81 Encounter for therapeutic drug level monitoring | CPT/HCPCS: 80053; 82306; 82525; 82607; 82746; 83036; 83540; 83550; 84425; 84443; 84446; 84590; 84597; 84630; 85025 ==

== ENCOUNTER → 2024-06-29 13:05 | Outpatient (BNVA) | payer MEDICARE, OTHER, SELFPAY | PROVIDERS: PCP Family Medicine; Visit Provider Podiatrist Foot & Ankle Surgery | DX: E13.9 Other specified diabetes mellitus without complications (principal); B35.1 Tinea unguium; G62.9 Polyneuropathy, unspecified; I73.9 Peripheral vascular disease, unspecified | CPT/HCPCS: 11721 ==

== ENCOUNTER 2024-08-02 14:22 | Outpatient (CLI) | payer MEDICARE, OTHER, SELFPAY ==
--- NOTE | 2024-08-02 14:30 | MR_ITS ---
WS: [id number] MRI CERVICAL SPINE NONCONTRAST TECHNIQUE: Sagittal T1, T2 and STIR imaging. Axial T2, gradient, and fiesta imaging. CLINICAL INFORMATION: Cervical radiculopathy COMPARISON: MRI 2012 FINDINGS: Straightening of the normal cervical doses with moderate spondylitic changes progressed since 2012. Disc bulging worse at C3-C4 and C4-C5. Lipoma in the dorsal subcutaneous soft tissues at the C5-C7 level measuring 4.9 x 2.3 cm C2-C3: Mild facet arthropathy. C3-C4: Central disc osteophyte protrusion with mild central canal stenosis. Moderate facet arthropathy. Severe LEFT greater than RIGHT bony foraminal narrowing. Mild LEFT facet synovitis. C4-C5: Disc osteophyte complex with a tiny central protrusion. Moderate facet arthropathy. Mild bilateral foraminal narrowing. Mild central canal stenosis. C5-C6: Shallow central protrusion. Moderate facet arthropathy. Moderate LEFT and mild RIGHT bony foraminal narrowing. C6-C7: Disc osteophyte complex with severe LEFT bony foraminal narrowing. Moderate RIGHT foraminal narrowing. Mild facet arthropathy. Mild central canal stenosis. C7-T1: Mild LEFT greater than RIGHT bony foraminal narrowing. T1-T2: Mild LEFT bony foraminal narrowing. Visualized brain stem structures: Normal. Prevertebral soft tissues: Normal. MR/MR cervical spin wo con* [id number] IMPRESSION: 1. Straightening of the normal cervical doses with moderate spondylitic change s. 2. Mild central canal stenosis C3-C4 C4-C5 and C6-C7. 3. Moderate to severe bony foraminal narrowing worse at LEFT C3-4, LEFT C6-7 a nd LEFT C7-1. 4. LEFT C3-4 facet synovitis likely degenerative or inflammatory.
== END 2024-08-02 14:23 | disposition home or self-care (01) ==
PROVIDERS: PCP Family Medicine; Visit Provider Family Medicine
DX: M54.12 Radiculopathy, cervical region (principal); M48.02 Spinal stenosis, cervical region; M65.88 Other synovitis and tenosynovitis, other site; M47.892 Other spondylosis, cervical region; M25.78 Osteophyte, vertebrae; M50.21 Other cervical disc displacement, high cervical region; M48.03 Spinal stenosis, cervicothoracic region; M48.04 Spinal stenosis, thoracic region
CPT/HCPCS: 72141